=== PATIENT | female | born 1980 | race Caucasian/White ===

== ENCOUNTER 2017-05-25 23:33 | Emergency (ER) | payer MEDICAID, OTHER ==
[~2017-05-25] VITALS: Ht 167.6 cm; Wt 57.0 kg
[2017-05-26 00:01] LABS: CLARITY,URINE CLOUDY (Clear); COLOR,URINE YELLOW (Yellow); GLUCOSE, URINE NEGATIVE (Neg); KETONES,URINE NEGATIVE (Neg); LEUKOCYTE ESTERASE ,URINE SMALL (Neg); NITRITES, URINE NEGATIVE (Neg); OCCULT BLOOD,URINE LARGE (Neg); PH,URINE 6.5 (4.8-8.0); PROTEIN,URINE 30 mg/dl (Neg)
[2017-05-26 00:02] LABS: URINE HCG NEGATIVE (NEG)
[2017-05-26 00:06] LABS: UA COLLECTION TYPE CLN CATCH MIDSTREAM
[2017-05-26 00:07] LABS: BACTERIA,URINE 3+ /HPF (Neg); RBC,URINE 50-100 /HPF (0-2); SQUAMOUS EPITHELIAL CELL,UR MODERATE /LPF (FEW)
[2017-05-26] MEDS ORDERED: sulfamethoxazole/trimethoprim DS (800/160mg) tablet PO ONE (01:15)
[2017-05-26] MEDS ORDERED: SULF1TAB49 PO (01:17)
[2017-05-26 01:28] VITALS: BP 117/76
== END 2017-05-26 01:29 | disposition home or self-care (01) ==
LOC: ER 23:33
DX: N39.0 Urinary tract infection, site not specified (principal); Z98.890 Other specified postprocedural states
CPT/HCPCS: 81001; 81003; 81025; 87077; 87088; 87186; 99284

== ENCOUNTER 2017-09-27 22:38 | Emergency (ER) | payer OTHER ==
[~2017-09-27] VITALS: Ht 172.7 cm; Wt 67.0 kg
[2017-09-27 22:52] VITALS: BP 116/76
[2017-09-27] MEDS ORDERED: LIDOcaine 1% 30ml preserv. free vial IJ ONE (23:30)
[2017-09-27] MEDS ORDERED: TETanus/Pertussis (Acell)/Diphther VAC/PF (Tdap-Adult) 0.5ml syringe IM ONE (23:30)
[2017-09-28] MEDS ORDERED: SULF1TAB49 PO (00:04)
[2017-09-28] MEDS ORDERED: CEPH500C5 PO (00:04)
== END 2017-09-28 00:28 | disposition home or self-care (01) ==
LOC: ER 22:39
DX: L02.414 Cutaneous abscess of left upper limb (principal); L03.114 Cellulitis of left upper limb; Z90.49 Acquired absence of other specified parts of digestive tract; Z90.89 Acquired absence of other organs; Z79.899 Other long term (current) drug therapy
CPT/HCPCS: 10060; 90715; 99283; J3490

== ENCOUNTER 2024-04-13 16:53 | Emergency (ER) | payer MEDICAID ==
[~2024-04-13] VITALS: Ht 172.7 cm; Wt 86.4 kg
[2024-04-13 16:58] VITALS: BP 140/84; PULSE 79; RESP 18; O2SAT 97
[2024-04-13] MEDS ORDERED: SULF1TAB49 PO (17:29)
[2024-04-13 18:21] VITALS: TEMP 97.6
[2024-04-13] MEDS: LIDOcaine 1% 30ml preserv. free vial IJ ONE (18:21)
== END 2024-04-13 18:25 | disposition home or self-care (01) ==
LOC: ER 16:54
DX: L02.413 Cutaneous abscess of right upper limb (principal); L73.2 Hidradenitis suppurativa; Z87.442 Personal history of urinary calculi; F10.90 Alcohol use, unspecified, uncomplicated; Z90.89 Acquired absence of other organs; Z90.49 Acquired absence of other specified parts of digestive tract; Z98.890 Other specified postprocedural states; Y90.9 Presence of alcohol in blood, level not specified
CPT/HCPCS: 10061; 99283; 99284; A6258; A6449